=== PATIENT | male | born 1990 | race Caucasian/White ===

== ENCOUNTER 2017-09-21 17:09 | Emergency (ER) | payer OTHER ==
[~2017-09-21] VITALS: Ht 170.2 cm; Wt 87.0 kg
[2017-09-21 17:15] VITALS: Ht 170.2 cm; Wt 87.0 kg
[2017-09-21] MEDS ORDERED: LIDOCAINE 2% (MDV) 20 ML INJ INJ ONE (18:30)
[2017-09-21] MEDS ORDERED: IBUPROFEN 600 MG TAB PO ONE (18:30)
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
[2017-09-21] MEDS ORDERED: IBUP-1542 PO (20:10)
[2017-09-21] MEDS ORDERED: ORPH100T PO (20:10)
[2017-09-21] MEDS ORDERED: HYDR-906 PO (20:10)
[2017-09-21] MEDS ORDERED: CEPH-443 PO (20:11)
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
[2017-09-21 20:56] VITALS: BP 127/63; PULSE 89; RESP 16; TEMP 99.8
== END 2017-09-21 20:57 | disposition home or self-care (01) ==
LOC: FTE 17:09
DX: S01.511A Laceration without foreign body of lip, initial encounter (principal); V89.2XXA Person injured in unspecified motor-vehicle accident, traffic, initial encounter
CPT/HCPCS: 12013; 70140; 72040; 73080; 73590; Z7502; Z7610

== ENCOUNTER 2017-09-23 09:43 | Emergency (ER) | payer OTHER ==
[~2017-09-23] VITALS: Ht 172.7 cm; Wt 89.0 kg
[~2017-09-23 09:43] MED LIST: CEPH-443 PO; HYDR-906 PO; IBUP-1542 PO; ORPH100T PO
[2017-09-23 09:52] VITALS: Ht 172.7 cm; Wt 89.0 kg
[2017-09-23] MEDS ORDERED: AMOX1TAB10 PO (10:55)
--- NOTE | 2017-09-23 11:03 | ERD ---
ER Documentation Chief Complaint Chief Complaint 2 day wound check lower lip HPI 26-year-old male presents 2 days status post laceration to lower lip. Patient denies fever, chills, pain, changes in skin color or swelling. Has been taking antibiotics as prescribed. Vaccination status up-to-date. Denies rapidly progressive neurological deficits. No other complaints. No other associated manifestations. ROS All systems reviewed and are negative except as per history of present illness. Medications Home Meds Active Scripts Amoxicillin/Potassium Clav (Amox-Clav 875-125 mg Tablet) 875-125 mg Tab, 1 TAB PO BID for 7 Days, #14 TAB Prov:MARLA FLORES PA-C 09/23/17 Cephalexin* (Keflex*) 500 Mg Capsule, 500 MG PO BID for 7 Days, CAP Prov:MARIKA HAN C 09/21/17 Orphenadrine Citrate (Norflex) 100 Mg Tablet.sa, 100 MG PO BID for 7 Days, TAB.SA Prov:MARIKA HAN C 09/21/17 Hydrocodone/Acetaminophen ([place] 5-325 Tablet) 1 Each Tablet, 1 TAB PO Q6H Y for PAIN, #10 TAB Prov:MARIKA HAN C 09/21/17 Ibuprofen* (Motrin*) 600 Mg Tab, 600 MG PO Q6, #30 TAB Prov:MARIKA HAN C 09/21/17 Allergies Allergies: Coded Allergies: No Known Allergy (Unverified , 09/21/17) PMhx/Soc Medical and Surgical Hx: pt denies Medical Hx, pt denies Surgical Hx Hx Alcohol Use: No Hx Substance Use: Yes (MARIJUANA) Hx Tobacco Use: No Physical Exam Vitals Vital Signs Date Time Temp Pulse Resp B/P Pulse Ox O2 Delivery O2 Flow Rate FiO2 09/23/17 09:52 98.1 57 18 129/72 99 Physical Exam Const: Healthy-appearing 26-year-old male in no acute distress Head: Atraumatic Eyes: Normal Conjunctiva ENT: Normal External Ears, Nose. Laceration on the left lower leg. Sutures well placed. Drainage from the site. No induration or fluctuance. Not able to express additional material from the site of injury. No warmth. No swelling noted. Neck: Full range of motion..~ No meningismus. Resp: Clear to auscultation bilaterally Cardio: Regular rate and rhythm, no murmurs Ext: No cyanosis, or edema Neur: Awake and alert Psych: Normal Mood and Affect Procedures/MDM 26-year-old male presenting 2 days status post laceration repair on left lower lip. Sutures well placed. Yellow discharge from the site. No other signs of infection. No signs or symptoms of airway compromise. I will suspicion for Mikey's angina, bacteremia or other systemic infection. Most likely diagnosis is healing site with possible superficial cellulitis. Patient has been taking Keflex. Patient will be switched to Augmentin. I have spoke with the patient regarding their condition and future management. They have verbally responded that they understand their status and treatment plan. The patients vitals are stable, and their current condition is appropriate for discharge. The patient will be given discharge instructions with return precautions. Departure Diagnosis: Primary Impression: Encounter for wound re-check Additional Impression: Cellulitis Site of cellulitis: face Qualified Code: L03.211 - Cellulitis of face Condition: Stable Patient Instructions: Wound Care Additional Instructions: Follow-up in 3 days for removal of sutures. Return the the emergency department immediately if symptoms worsen or change. If you have any questions regarding medications, ask your pharmacist or us before you leave. If any adverse reactions occur while taking your medications, discontinue the treatment and return to the emergency department immediately. Take your medications as directed, and complete the entire course of treatment. MARLA FLORES PA-C Sep 23, 2017 11:03
== END 2017-09-23 11:38 | disposition home or self-care (01) ==
LOC: FTE 09:43
DX: L03.211 Cellulitis of face (principal)
CPT/HCPCS: 99283